=== PATIENT | female | born 1940 | race Native Hawaiian/Other Pacific Islander ===

== ENCOUNTER 2019-11-02 21:17 | Outpatient (CLI) | payer OTHER, MEDICARE ==
[~2019-11-02 21:17] MED LIST: ASA LO-DOSE81 MG OR; CELEBREX200 MG OR; CLOP75TA2 PO; FLUO20CA6 PO; HYDR25TA60 PO; LEVO0.0218 PO; LIPITOR20 MG PO; LORA0.5T17 PO; LOTREL1 CA4 PO; PREVACID30 MG OR
== END 2019-11-02 21:44 | disposition short-term general hospital (02) ==
LOC: AMB 21:17
DX: R50.9 Fever, unspecified (principal); R06.2 Wheezing; R06.02 Shortness of breath; N39.0 Urinary tract infection, site not specified; R30.0 Dysuria
CPT/HCPCS: A0425; A0429